=== PATIENT | female | born 1960 | race African-American/Black ===

== ENCOUNTER 2017-09-08 13:28 | Emergency (ER) | payer MEDICARE, MEDICAID ==
[~2017-09-08] VITALS: Ht 165.1 cm; Wt 134.0 kg
[~2017-09-08 13:28] MED LIST: GLIP5TAB12 PO; HUMALOG; METF500T6 PO
[2017-09-08] MEDS ORDERED: CEPHALEXIN 500MG CAPSULE PO ONE (17:00)
[2017-09-08 17:43] VITALS: BP 192/96
== END 2017-09-08 17:46 | disposition home or self-care (01) ==
LOC: ER 14:47
DX: L03.116 Cellulitis of left lower limb (principal); E11.9 Type 2 diabetes mellitus without complications; I10 Essential (primary) hypertension; E78.5 Hyperlipidemia, unspecified; Z79.84 Long term (current) use of oral hypoglycemic drugs
CPT/HCPCS: 73590; 82962; 99284

== ENCOUNTER 2019-10-18 06:46 | Emergency (ER) | payer MEDICARE, MEDICAID ==
[~2019-10-18] VITALS: Ht 172.7 cm; Wt 77.0 kg
[~2019-10-18 06:46] MED LIST changes: +METF-414 PO; -METF500T6 PO
[2019-10-18] MEDS ORDERED: SODIUM CHLORIDE 0.9% 1,000 ML IV ONE (07:11)
[2019-10-18 07:56] LABS: BASOPHILS % 0.3 % (0.0-2.0); EOSINOPHILS % 0.1 % (0.0-5.0); HEMATOCRIT. 48.4 % (36.0-48.0); HEMOGLOBIN. 15.9 g/dL (12.0-16.0); LYMPHOCYTES % 9.2 % (20.0-50.0); MEAN CORPUSCULAR HEMOGLOBIN 26.7 pg (28.0-32.0); MEAN CORPUSCULAR VOLUME 81.1 fL (81.0-99.0); MONOCYTES % 9.7 % (2.0-8.0); NEUTROPHILS % 80.7 % (40.0-76.0); PLATELET 264 x1000/uL (130-400); RED BLOOD CELL COUNT 5.97 mill/uL (4.2-5.4); RED CELL DISTRIBUTION WIDTH 13.7 % (11.6-14.6)
[2019-10-18 08:03] LABS: CHLORIDE 106 mEq/L (98-107)
[2019-10-18 08:06] LABS: INR 1.1; PROTHROMBIN TIME 11.2 sec (9.6-11.0)
[2019-10-18 08:51] LABS: CLARITY URINE TURBID (CLEAR); COLOR URINE DARK YELLOW (YELLOW); KETONES URINE TRACE (NEGATIVE); LEUKOCYTE ESTERASE URINE 1+ (NEGATIVE); NITRITE URINE POSITIVE (NEGATIVE); OCCULT BLOOD URINE TRACE (NEGATIVE); PH URINE 5.5 (4.5-8.0); PROTEIN URINE 3+ (NEGATIVE); SPECIFIC GRAVITY URINE 1.032 (1.005-1.030)
[2019-10-18] MEDS ORDERED: CEFTRIAXONE 1 G PREMIX 50 ML IV ONE (09:00)
[2019-10-18 09:10] VITALS: BP 150/89
== END 2019-10-18 10:01 | disposition home or self-care (01) ==
LOC: ER 06:46
DX: R19.7 Diarrhea, unspecified (principal); E86.0 Dehydration; N39.0 Urinary tract infection, site not specified; E11.9 Type 2 diabetes mellitus without complications; I10 Essential (primary) hypertension; Z79.899 Other long term (current) drug therapy
CPT/HCPCS: 36415; 80053; 81003; 83690; 85025; 85610; 87086; 96361; 96365; 99284; J0696; J7030